=== PATIENT | male | born 1990 | race Caucasian/White ===

== ENCOUNTER 2019-05-22 10:49 | Emergency (ER) | payer OTHER ==
[~2019-05-22] VITALS: Ht 167.6 cm; Wt 63.5 kg
[2019-05-22 10:52] VITALS: Ht 167.6 cm; Wt 63.5 kg
[2019-05-22 11:28] LABS: microscopic required? NO
[2019-05-22 11:45] LABS: BASOPHIL % 0.7 % (0-2); UA SPECIFIC GRAVITY 1.015 (1.005-1.035); urine erythrocyte NEGATIVE (NEGATIVE)
[2019-05-22] MEDS ORDERED: TEMAZEPAM30 MG PO (11:55)
[2019-05-22 11:56] LABS: RED CELL DISTRIBUTION WIDTH 23.7 % (11.5-14.5)
[2019-05-22] MEDS ORDERED: ZOFRAN8 MG PO (11:56)
[2019-05-22] MEDS ORDERED: BUPROPION HCL150 M1 PO (11:56)
[2019-05-22] MEDS ORDERED: CEFIXIME100 MG/5 M PO (11:58)
[2019-05-22] MEDS ORDERED: VANCO 1.251.25 GM/25 IV (11:58)
[2019-05-22 11:59] LABS: PLATELET COUNT 826 x10^3mcL (130-400)
[2019-05-22 12:00] LABS: rbc morphology (normal/abnorm) ABNORMAL (NORMAL)
[2019-05-22 12:16] LABS: T3 TOTAL 0.94 ng/mL
[2019-05-22 12:27] LABS: CREATINE KINASE 18 U/L (39-308)
[2019-05-22 12:43] LABS: ALKALINE PHOSPHATASE 82 U/L (46-116); ALT/SGPT 11 U/L (16-63); AST/SGOT 6 U/L (15-37); BILIRUBIN TOTAL 0.23 mg/dL (0.20-1.00); CALCIUM 8.6 mg/dL (8.5-10.1); CARBON DIOXIDE 27.9 mmol/L (21-32); CHLORIDE SERUM 102 mmol/L (98-107); CREATININE SERUM 0.6 mg/dL (0.7-1.3); GFR1 > 60 mL/min; GLUCOSE SERUM 95 mg/dL (74-106); POTASSIUM SERUM 3.8 mmol/L (3.5-5.1); SODIUM SERUM 138 mmol/L (136-145)
[2019-05-22 12:51] LABS: CK-MB < 0.5 ng/mL (0-3.6)
[2019-05-22 12:53] LABS: TOTAL PROTEIN, SERUM 8.3 g/dL (6.4-8.2)
[2019-05-22 12:54] LABS: ERYTHROCYTE SED RATE 111 mm/hr (0-15)
[2019-05-22 13:06] LABS: FREE T4 1.13 ng/dL (0.76-1.46); FREE THYROXINE INDEX 2.5 ug/dL (1.4-4.5)
[2019-05-22 13:48] LABS: C REACTIVE PROTEIN 18.5 mg/dL (<=0.9)
[2019-05-22 19:15] VITALS: BP 127/76
== END 2019-05-22 20:30 | disposition home or self-care (01) ==
LOC: ED 10:49
PROVIDERS: Specialist
DX: L02.416 Cutaneous abscess of left lower limb (principal); M86.8X8 Other osteomyelitis, other site; L89.224 Pressure ulcer of left hip, stage 4; Z86.2 Personal history of diseases of the blood and blood-forming organs and certain disorders involving the immune mechanism; Z90.89 Acquired absence of other organs
CPT/HCPCS: 84439; J0692; J1642; J3370; J7030; Q0092